=== PATIENT | female | born 1975 | race Caucasian/White ===

== ENCOUNTER 2018-02-19 13:18 | Emergency (ER) | payer OTHER ==
[2018-02-19 13:19] VITALS: BMI 30.9
[2018-02-19 13:41] VITALS: BP 105/68; PULSE 84; RESP 20; TEMP 97.4; O2SAT 100
[2018-02-19] MEDS ORDERED: Lidocaine 2% Inj (20ml) INFIL ONE (14:23)
[2018-02-19] MEDS ORDERED: Tmp-Smz 800 mg-160 mg DS Tab PO STA (14:23)
[2018-02-19] MEDS ORDERED: Lidocaine 2% MPF (5 ml) Inj ONE (14:35)
[2018-02-19] MEDS ORDERED: Tmp-Smz 800 mg-160 mg DS Tab ONE (14:35)
--- NOTE | 2018-02-19 15:04 | C.PDOC ---
History Of Present Illness The patient reports that she developed an abscess near the rectal over the past 3-4 days. The patient reports that is busted open and start draining today. Denies fever. Time Seen by Provider: 02/19/18 13:59 Chief Complaint (Nursing): Abnormal Skin Integrity History Per: Patient History/Exam Limitations: no limitations Onset/Duration Of Symptoms: Days Current Symptoms Are (Timing): Still Present Quality Of Symptoms: Painful, Swollen Recent travel outside of the [place]: No Past Medical History Reviewed: Historical Data, Nursing Documentation, Vital Signs Vital Signs: Last Vital Signs Temp 97.4 F L 02/19/18 13:37 Pulse 84 02/19/18 13:37 Resp 20 02/19/18 15:14 BP 105/68 02/19/18 13:37 Pulse Ox 100 02/19/18 15:04 - Medical History PMH: No Chronic Diseases, Rheumatoid Arthritis Surgical History: Cholecystectomy - [facility] Procedures MANUAL ASSIST DELIV NEC (01/29/14) SURG INDUCT LABOR NEC (01/29/14) Family History: States: Unknown Family Hx - Social History Hx Tobacco Use: Yes Hx Alcohol Use: Yes Hx Substance Use: No - Immunization History Hx Tetanus Toxoid Vaccination: No Hx Influenza Vaccination: No Hx Pneumococcal Vaccination: No Review Of Systems Constitutional: Negative for: Fever, Chills Physical Exam - Physical Exam Appears: Non-toxic, No Acute Distress Skin: Normal Color, Warm Head: Atraumatic, Normacephalic Eye(s): bilateral: Normal Inspection Oral Mucosa: Moist Neck: Normal ROM Rectal: Hemorrhoids (large external hemorrhoids), Other ((+) 2cm pilonidal abscess to the right side with fluctuance and swelling. ) Extremity: Normal ROM, No Swelling Neurological/Psych: Oriented x3, Normal Speech Gait: Steady ED Course And Treatment O2 Sat by Pulse Oximetry: 100 (on RA) Pulse Ox Interpretation: Normal - Incision & Drainage Of Abscess Anesthesia: Lidocaine 2% Prep Used: Sterile Water Procedure: Incised W/Scalpel Blade#:, Drained Pus, Irrigated Cavity W/Saline, Probed To Break Up Loculations, Packed W/Gauze Medical Decision Making Medical Decision Making: The abscess still had a fluctuant area and was drained. Antibiotics ordered. Disposition Discussed With : - Disposition Referrals: Shawn Teixeira MD [Staff Provider] - Disposition: HOME/ ROUTINE Disposition Time: 15:03 Condition: STABLE Additional Instructions: RETURN IN 2 DAYS FOR PACKING REMOVAL AND WOUND CHECK. Prescriptions: Cephalexin [Keflex] 500 mg PO BID #19 capsule Sulfamethoxazole/Trimethoprim [Bactrim DS 800 mg-160 mg] 1 tab PO BID #14 tab Instructions: Pilonidal Cyst (DC) Forms: [employer] (Lao) - Clinical Impression Clinical Impression: Pilonidal abscess
== END 2018-02-19 15:12 | disposition home or self-care (01) ==
LOC: C.ER 13:18
DX: L05.01 Pilonidal cyst with abscess (principal)

== ENCOUNTER 2018-02-21 13:25 | Emergency (ER) | payer OTHER ==
[2018-02-21 13:25] VITALS: BMI 30.9
[2018-02-21 13:42] VITALS: BP 104/70; PULSE 67; RESP 16; TEMP 98.8; O2SAT 97
--- NOTE | 2018-02-21 13:48 | C.PDOC ---
History Of Present Illness 42 yo female come in for scheduled wound check after pilonidal cyst was I&D here in ED on 02/19/18. Pt reports, ' feels much better, pain improved significantly". Pt admits, takes antibiotic as initiated, denies significant wound discharges. Deneis fever, chills, denies nay other new changes. Ambulate to Ed for evaluation, not in any apparent distress. Time Seen by Provider: 02/21/18 13:41 Chief Complaint (Nursing): Wound Check History Per: Patient Past Medical History Reviewed: Historical Data, Nursing Documentation, Vital Signs Vital Signs: Last Vital Signs Temp 98.8 F 02/21/18 13:41 Pulse 67 02/21/18 13:41 Resp 16 02/21/18 13:41 BP 104/70 02/21/18 13:41 Pulse Ox 97 02/21/18 13:48 - Medical History PMH: Rheumatoid Arthritis Surgical History: Cholecystectomy - [facility] Procedures MANUAL ASSIST DELIV NEC (01/29/14) SURG INDUCT LABOR NEC (01/29/14) Family History: States: Unknown Family Hx - Social History Hx Tobacco Use: Yes Hx Alcohol Use: Yes Hx Substance Use: No - Immunization History Hx Tetanus Toxoid Vaccination: No Hx Influenza Vaccination: No Hx Pneumococcal Vaccination: No Review Of Systems Except As Marked, All Systems Reviewed And Found Negative. Constitutional: Negative for: Fever, Chills Gastrointestinal: Negative for: Nausea, Vomiting, Abdominal Pain, Diarrhea Musculoskeletal: Negative for: Back Pain Skin: Positive for: Lesions Neurological: Negative for: Weakness, Numbness Physical Exam - Physical Exam Appears: Well, Non-toxic, No Acute Distress Skin: Normal Color, Warm, Other (small open wound Right gluteal area, no packing noted, no wound discahrges, no flactulance.) Head: Normacephalic Gastrointestinal/Abdominal: Soft, No Tenderness, No Distention, No Guarding Back: No CVA Tenderness Extremity: Normal ROM, No Deformity, No Swelling Neurological/Psych: Oriented x3, Normal Speech ED Course And Treatment O2 Sat by Pulse Oximetry: 97 Progress Note: Wound was cleaned, irrigated. No significant discharges, no flactulance, no proximal streaking. pt advised on wound care. ref. to f/u with PMD in 2 days for re-eval. return if any new changes. Disposition Counseled Patient/Family Regarding: Diagnosis, Need For Followup - Disposition Referrals: Shawn Teixeira MD [Staff Provider] - Huber Duque MD [Staff Provider] - Disposition: HOME/ ROUTINE Disposition Time: 13:48 Condition: STABLE Additional Instructions: Warm salty water sitz baths or [id number] 2-3 times daily for 5 minutes Continue antibiotic as initiated Follow up with PMD, Surgery in 2-3 days for re-evaluation. return if any new changes. Instructions: Pilonidal Cyst Forms: [employer] (Hungarian) - Clinical Impression Clinical Impression: Wound check, abscess
== END 2018-02-21 14:20 | disposition home or self-care (01) ==
LOC: C.ER 13:25
DX: Z48.00 Encounter for change or removal of nonsurgical wound dressing (principal); L05.01 Pilonidal cyst with abscess

== ENCOUNTER 2018-03-01 11:20 | Emergency (ER) | payer OTHER ==
[2018-03-01 11:21] VITALS: BMI 30.9
[2018-03-01 11:31] VITALS: O2SAT 99
[2018-03-01 12:35] LABS: BASO % 0.2 % (0.0-2.0); EOS # 0.2 K/uL (0.0-0.7); EOS % 5.3 % (0.0-4.0); LYMPH # 1.4 K/uL (1.0-4.3); LYMPH % 45.6 % (20.0-40.0); MEAN CELL VOLUME 86.2 fL (81.0-99.0); MEAN CORPUSCULAR HEMOGLOBIN 29.5 pg (27.0-31.0); MEAN CORPUSCULAR HGB CONC 34.3 g/dL (33.0-37.0); MEAN PLATELET VOLUME 8.4 fL (7.2-11.7); MONO # 0.2 K/uL (0.0-0.8); MONO % 6.6 % (0.0-10.0); NEUT # 1.3 K/uL (1.8-7.0); NEUT % 42.3 % (50.0-75.0); NRBC % 0.1 % (0.0-2.0); RBC 3.94 Mil/uL (3.80-5.20); RED CELL DISTRIBUTION WIDTH 12.8 % (11.5-14.5)
[2018-03-01 12:36] LABS: HEMOGLOBIN 11.6 g/dL (11.0-16.0)
[2018-03-01] MEDS ORDERED: Clindamycin 600mg/50ml NS 600 MG/50 ML BAG IVPB ONE (12:52)
[2018-03-01 12:54] LABS: BLOOD UREA NITROGEN 13 mg/dL (7-17); GFR AFRICAN-AMERICAN > 60; GFR NON-AFRICAN AMERICAN > 60
[2018-03-01 12:55] LABS: ALB/GLOB RATIO 0.7 (1.0-2.1); ALT/SGPT 26 U/L (9-52); AST/SGOT 27 U/L (14-36); CALCIUM 9.9 mg/dl (8.6-10.4)
--- NOTE | 2018-03-01 13:29 | C.PDOC ---
History Of Present Illness 42 yo female came in to the ED for abscess evaluation. PT notes that 10 days ago , she was evaluated in [facility] and had her perirectal abscess drained. Over the last two day, she reports "a fever only at night" and green discharge with wiping. Also notes itching and a rash to the area. Denies abdominal pain, increasing rectal pain or swelling, blood in stool, or back pain. Notes she has one day of the Keflex left. Time Seen by Provider: 03/01/18 11:36 Chief Complaint (Nursing): Abnormal Skin Integrity History Per: Patient History/Exam Limitations: no limitations Onset/Duration Of Symptoms: Days Quality Of Symptoms: Itching, Draining Past Medical History Vital Signs: Last Vital Signs Temp 98.6 F 03/01/18 13:36 Pulse 60 03/01/18 13:36 Resp 16 03/01/18 13:36 BP 103/66 03/01/18 13:36 Pulse Ox 99 03/01/18 17:37 - Medical History PMH: Rheumatoid Arthritis Surgical History: Cholecystectomy - [facility] Procedures MANUAL ASSIST DELIV NEC (01/29/14) SURG INDUCT LABOR NEC (01/29/14) Family History: States: Unknown Family Hx - Social History Hx Tobacco Use: Yes Hx Alcohol Use: Yes Hx Substance Use: No - Immunization History Hx Tetanus Toxoid Vaccination: No Hx Influenza Vaccination: No Hx Pneumococcal Vaccination: No Review Of Systems Except As Marked, All Systems Reviewed And Found Negative. Constitutional: Positive for: Fever Physical Exam - Physical Exam Appears: Well, Non-toxic, No Acute Distress Skin: Warm, Dry Head: Atraumatic, Normacephalic Eye(s): bilateral: Normal Inspection, EOMI Nose: Normal Oral Mucosa: Moist Neck: Normal, Normal ROM, Supple Chest: Symmetrical Respiratory: No Accessory Muscle Use Gastrointestinal/Abdominal: Normal Exam, Soft, No Tenderness Rectal: Other ((+) nonthrombosed nontender external hemorrhoids, (+) 0.5 cm open wound with min drainage at 7 oclock (+) well demarcated erythema perirectally. ) Back: Normal Inspection Extremity: Normal ROM Neurological/Psych: Oriented x3, Normal Speech ED Course And Treatment - Laboratory Results Result Diagrams: 03/01/18 12:18 03/01/18 12:18 O2 Sat by Pulse Oximetry: 99 Progress Note: WBC 3. Area is soft, draining, non fluctuant. Afebrile. Pt was instructed start new abx and wound check in2 days . Case discussed with Dr Beyer who evaluted pt at bedside, agreed upon plan, treatment and discharge. Disposition - Disposition Disposition: HOME/ ROUTINE Disposition Time: 13:24 Condition: STABLE Additional Instructions: FOllow up with your doctor as scheduled. Return to ER if symptoms persist or worsen. Prescriptions: Clindamycin [Cleocin] 300 mg PO QID #28 cap Clotrimazole 1% Cream [Lotrimin 1% CREAM] 1 applic TOP BID #1 tube Instructions: Abscess Incision and Drainage (DC) Forms: [employer] (Colombian) - Clinical Impression Clinical Impression: Perirectal abscess
[2018-03-01 13:36] VITALS: BP 103/66; PULSE 60; RESP 16; TEMP 98.6
== END 2018-03-01 13:55 | disposition home or self-care (01) ==
LOC: C.ER 11:20
DX: K61.1 Rectal abscess (principal)